=== PATIENT | male | born 1990 | race Caucasian/White ===

== ENCOUNTER 2018-11-24 00:43 | Emergency (ER) | payer SELFPAY ==
[~2018-11-24] VITALS: Ht 198.1 cm; Wt 159.1 kg
[2018-11-24] MEDS ORDERED: HYDR-4455 PO (00:48)
[2018-11-24] MEDS ORDERED: CYCLOBENZAPRINE HCL 10 MG TABLET PO ONE (01:00)
[2018-11-24 05:09] VITALS: BP 154/93
== END 2018-11-24 03:49 | disposition home or self-care (01) ==
LOC: EDUNIT# 00:43 → EMS 00:45
DX: M50.21 Other cervical disc displacement, high cervical region (principal)
CPT/HCPCS: 72125

== ENCOUNTER 2018-12-05 05:10 | Inpatient (IN) | payer OTHER ==
[~2018-12-05] VITALS: Ht 198.1 cm; Wt 170.8 kg
[~2018-12-05 05:10] MED LIST: HYDR-4455 PO
[2018-12-05] MEDS ORDERED: RINGERS SOLUTION,LACTATED 1,000 ML IV ONE ×2 (05:29→06:00)
[2018-12-05] MEDS ORDERED: CeFAZolin 2 GM/DEXTROSE 50 ML IV ONE ×2 (05:29→07:00)
[2018-12-05 06:10] LABS: EOSINOPHILS % (AUTO) 2.9 % (1.0-6.0); HEMATOCRIT 43.8 % (41-53); HEMOGLOBIN 15.3 g/dL (13.5-17.5); LYMPHOCYTES # (AUTO) 2.6 K/uL (1.0-4.8); LYMPHOCYTES % (AUTO) 30.8 % (22.0-44.0); MEAN CORPUSCULAR HEMOGLOBIN 29.6 pg (26.0-34.0); MEAN CORPUSCULAR HGB CONC 34.9 G/dL (31.0-37.0); MEAN CORPUSCULAR VOLUME 85 fL (80-100); MONOCYTES # (AUTO) 0.5 K/uL (0.1-1.0); MONOCYTES % (AUTO) 5.8 % (2.0-9.0); NEUTROPHILS # (AUTO) 5.1 K/uL (1.8-7.7); NEUTROPHILS % (AUTO) 59.5 % (40.0-70.0); PLATELET COUNT (AUTO) 262 K/uL (150-450); RED BLOOD CELL COUNT(AUTO) 5.17 MIL/uL (4.50-5.90); RED CELL DISTRIBUTION WIDTH 13.5 % (11.5-14.5)
[2018-12-05 06:29] LABS: INR 0.9 (0.9-1.1); PROTHROMBIN TIME 9.8 SEC (9.4-11.6)
[2018-12-05 06:31] LABS: ANION GAP 5 mmol/L (8-16); CALCIUM, TOTAL 8.4 mg/dL (8.8-10.5); CARBON DIOXIDE 28 mmol/L (22-29); CHLORIDE 104 mmol/L (98-107); CREATININE 0.92 mg/dL (0.60-1.30); GLOMERULAR FILTR. RATE CALC > 60 mL/min (>60); GLUCOSE,RANDOM 98 mg/dL (70-110); SODIUM SERUM 137 mmol/L (136-145); UREA NITROGEN, BLOOD 10 mg/dL (7-18)
[2018-12-05] MEDS ORDERED: RINGERS SOLUTION,LACTATED 1,000 ML IV SCH ×2 (07:00→10:00)
[2018-12-05] MEDS ORDERED: SODIUM CHLORIDE 0.9% 10 ML ONE (07:05)
[2018-12-05] MEDS ORDERED: BACITRACIN 50,000 UNITS/VIAL ONE (07:06)
[2018-12-05] MEDS ORDERED: GELATIN SPONGE,ABSORBABLE 50 MM TP ONE (07:06)
[2018-12-05] MEDS ORDERED: THROMBIN, BOVINE 20000 UNITS/VIAL POWDER TP ONE (07:06)
[2018-12-05] MEDS ORDERED: ACETAMINOPHEN 1000 MG/ISO-OSM 100 ML IV ONE (07:25)
[2018-12-05] MEDS ORDERED: PROPOFOL 1000 MG/ISO-OSM 0 ML IV ONE (07:25)
[2018-12-05] MEDS ORDERED: PROPOFOL 1000 MG/ISO-OSM 100 ML IV ONE (07:32)
[2018-12-05] MEDS ORDERED: ONDANSETRON HCL 4 MG/2 ML VIAL IVP PRN ×2 (09:00→09:45)
[2018-12-05] MEDS ORDERED: MAG HYDROX/AL HYDROX/SIMETH 30 ML SUSP UDCUP PO PRN (09:45)
[2018-12-05] MEDS ORDERED: BENZOCAINE/MENTHOL LOZENGE PO PRN (09:45)
[2018-12-05] MEDS ORDERED: ACETAMINOPHEN 325 MG TABLET PO PRN (09:45)
[2018-12-05 11:12] VITALS: BP 149/90
[2018-12-05] MEDS ORDERED: ONDANSETRON HCL 4 MG/2 ML VIAL IVP ONE (12:00)
[2018-12-05] MEDS ORDERED: SUCCINYLCHOLINE CHLORIDE 20 MG/ML 10 ML VIAL IVP ONE (12:00)
[2018-12-05] MEDS ORDERED: PHENYLEPHRINE HCL 10 MG/ML VIAL IVP ONE (12:00)
[2018-12-05] MEDS ORDERED: LIDOCAINE/PF 2% 5 ML VIAL INJ ONE (12:00)
[2018-12-05] MEDS ORDERED: PROPOFOL 1% 20 ML VIAL IVP ONE (12:00)
[2018-12-05] MEDS ORDERED: NEOSTIGMINE METHYLSULFATE 1 MG/ML 10 ML VIAL IVP ONE (12:00)
[2018-12-05] MEDS ORDERED: GLYCOPYRROLATE 0.2 MG/ML VIAL IM ONE (12:00)
[2018-12-05] MEDS: CYCLOBENZAPRINE HCL 10 MG TABLET PO PRN (12:14)
[2018-12-05 15:10] VITALS: BP 163/89
[2018-12-05] MEDS: GABAPENTIN 300 MG CAPSULE PO SCH ×2 (15:14→20:12)
[2018-12-05] MEDS: CeFAZolin 1 GM/DEXTROSE 50 ML IV SCH (15:14)
[2018-12-05 16:22] VITALS: BP 146/84
[2018-12-05] MEDS: ACETAMINOPHEN 1000 MG/ISO-OSM 100 ML IV SCH (16:28)
[2018-12-05 19:35] VITALS: BP 137/79
[2018-12-05] MEDS ORDERED: OXYGEN THERAPY IH SCH ×2 (20:00)
[2018-12-05] MEDS: DOCUSATE SODIUM 100 MG CAPSULE PO SCH (21:00)
[2018-12-05 23:15] VITALS: BP 135/77
[2018-12-06] MEDS: CeFAZolin 1 GM/DEXTROSE 50 ML IV SCH (00:14)
[2018-12-06] MEDS: ACETAMINOPHEN 1000 MG/ISO-OSM 100 ML IV SCH (00:40)
[2018-12-06 05:11] VITALS: BP 138/87
[2018-12-06 05:56] LABS: BASOPHILS % (AUTO) 0.5 % (0.0-2.0); EOSINOPHILS % (AUTO) 0.7 % (1.0-6.0); HEMATOCRIT 43.5 % (41-53); HEMOGLOBIN 14.8 g/dL (13.5-17.5); LYMPHOCYTES # (AUTO) 3.2 K/uL (1.0-4.8); LYMPHOCYTES % (AUTO) 24.8 % (22.0-44.0); MEAN CORPUSCULAR HEMOGLOBIN 28.8 pg (26.0-34.0); MEAN CORPUSCULAR HGB CONC 33.9 G/dL (31.0-37.0); MEAN CORPUSCULAR VOLUME 85 fL (80-100); MONOCYTES # (AUTO) 0.8 K/uL (0.1-1.0); MONOCYTES % (AUTO) 5.9 % (2.0-9.0); NEUTROPHILS # (AUTO) 8.7 K/uL (1.8-7.7); NEUTROPHILS % (AUTO) 68.1 % (40.0-70.0); PLATELET COUNT (AUTO) 280 K/uL (150-450); RED BLOOD CELL COUNT(AUTO) 5.13 MIL/uL (4.50-5.90); RED CELL DISTRIBUTION WIDTH 13.8 % (11.5-14.5)
[2018-12-06 06:16] LABS: ANION GAP 8 mmol/L (8-16); CALCIUM, TOTAL 9.2 mg/dL (8.8-10.5); CARBON DIOXIDE 28 mmol/L (22-29); CHLORIDE 103 mmol/L (98-107); CREATININE 0.85 mg/dL (0.60-1.30); GLOMERULAR FILTR. RATE CALC > 60 mL/min (>60); GLUCOSE,RANDOM 116 mg/dL (70-110); POTASSIUM 4.2 mmol/L (3.5-5.1); SODIUM SERUM 139 mmol/L (136-145); UREA NITROGEN, BLOOD 4 mg/dL (7-18)
[2018-12-06] MEDS ORDERED: DEXAMETHASONE SOD PHOS 4 MG/ML VIAL IVP ONE (07:00)
[2018-12-06 08:13] VITALS: BP 141/75
[2018-12-06] MEDS: CYCLOBENZAPRINE HCL 10 MG TABLET PO PRN (08:16)
[2018-12-06] MEDS: DOCUSATE SODIUM 100 MG CAPSULE PO SCH (08:16)
[2018-12-06] MEDS: GABAPENTIN 300 MG CAPSULE PO SCH (08:17)
[2018-12-06] MEDS ORDERED: NICOTINE 21 MG/24 HOUR PATCH TD SCH (09:00)
[2018-12-06] MEDS ORDERED: CYCL10 PO (09:04)
[2018-12-06] MEDS ORDERED: TRAM50TA4 PO (09:04)
[2018-12-06] MEDS ORDERED: CEPH500 PO (09:05)
[2018-12-06] MEDS ORDERED: FentaNYL CITRATE-PF 100 MCG/2 ML VIAL IVP ONE (12:00)
[2018-12-06] MEDS ORDERED: KETAMINE HCL 50 MG/ML 10 ML VIAL IVP ONE (12:00)
[2018-12-06] MEDS ORDERED: MIDAZOLAM HCL 2 MG/2 ML VIAL IVP ONE (12:00)
== END 2018-12-06 14:00 | disposition home or self-care (01) | DRG 472 ==
LOC: 4E 05:10 → EDUNIT# 10:00 → 4E 20:35
PROVIDERS: ADMIT Neurological Surgery; ATTEND Neurological Surgery
PROC: 0RG10A0 Fusion of Cervical Vertebral Joint with Interbody Fusion Device, Anterior Approach, Anterior Column, Open Approach (ICD-10-PCS; 2018-12-05)
PROC: 4A11X4G Monitoring of Peripheral Nervous Electrical Activity, Intraoperative, External Approach (ICD-10-PCS; 2018-12-05)
PROC: 0RB30ZZ Excision of Cervical Vertebral Disc, Open Approach (ICD-10-PCS; principal; 2018-12-05 07:30)
PROC: 5A09357 Assistance with Respiratory Ventilation, Less than 24 Consecutive Hours, Continuous Positive Airway Pressure (ICD-10-PCS; 2018-12-06)
DX: M50.21 Other cervical disc displacement, high cervical region (principal); Z68.41 Body mass index [BMI] 40.0-44.9, adult; Z87.891 Personal history of nicotine dependence; E66.01 Morbid (severe) obesity due to excess calories; G47.33 Obstructive sleep apnea (adult) (pediatric); M50.11 Cervical disc disorder with radiculopathy, high cervical region; V89.2XXA Person injured in unspecified motor-vehicle accident, traffic, initial encounter; Y92.410 Unspecified street and highway as the place of occurrence of the external cause; Z28.21 Immunization not carried out because of patient refusal
CPT/HCPCS: 86850; 86900; 86901; 87081; 93005; 94761; 97116; 97161; 97165; 97530; 97535; G0238; J0131; J0330; J0690; J1100; J2250; J2370; J2405; J2704; J3010; J3490; J7120